=== PATIENT | male | born 1970 | race Caucasian/White ===

== ENCOUNTER → 2018-12-24 | Outpatient (CLI) | payer OTHER ==
--- NOTE | 2018-12-24 21:31 | CONS ---
CONSULTATION DATE OF SERVICE: 12/24/2018 This patient is a 48-year-old gentleman who has been evaluated in the sleep center for possible obstructive sleep apnea-hypopnea syndrome. HISTORY OF PRESENT ILLNESS/SLEEP-WAKE EVALUATION: Patient's usual sleep schedule on working days is from 10 p.m. to 5 a.m. and on weekends from 10 p.m. to 8 or 9 a.m. No problems with falling asleep. No TV in bedroom. He sleeps with his . He sleeps in different positions. He snores and has episodes of stopped breathing during sleep witnessed by his and also himself that he wakes up gasping for air up to 3 times at night. In the morning he wakes up tired. He usually does not take any naps, although [place] Sleepiness Scale is 1. No history of hypnagogic hallucinations, sleep paralysis or cataplexy. PAST MEDICAL HISTORY: Basically negative for any significant medical problems. PAST SURGICAL HISTORY: Vasectomy. SOCIAL HISTORY: Negative for smoking. Alcohol consumption occasional. MEDICATIONS: None. FAMILY HISTORY: Heart problems, sleep apnea, diabetes. REVIEW OF SYSTEMS: Awakenings from sleep, feeling some tiredness after awakenings. PHYSICAL EXAMINATION: GENERAL: A pleasant gentleman without distress. VITAL SIGNS: BP 112/75, HR 70, RR 16. Height 5 feet 8-1/2 inches. Weight 203, body mass index 30.4. Neck 15 inches in circumference. Temperature 98.3. Oxygen saturation at room air 98%. HEENT: PERRLA, EOMI. Evaluation of oropharynx showed tongue protrudes midline. Extremely low position of soft palate. Mallampati IV. Slight restriction of nasal breathing. Slight asymmetry of the nose. NECK: Supple. No JVD. Thyroid is not palpable. LUNGS: Clear to percussion and to auscultation. Good air exchange. No wheezing or rhonchi. HEART: S1, S2 regular. No murmurs, gallops or rubs. ABDOMEN: Soft and nontender. Bowel sounds are present. No organomegaly. EXTREMITIES: No clubbing or cyanosis. MORNING SHOW [employer]: Awake, alert, and oriented X3. Cranial nerves 2 to 7 intact. There is no fasciculation or atrophy. noted. No focal deficits observed. IMPRESSION: 1. Snoring, witnessed episodes of stopped breathing during sleep, awakenings from sleep with gasping for air, low position of soft palate, Mallampati IV, wide neck; obstructive sleep apnea-hypopnea syndrome. 2. Mild increasing of body mass index into the range of obesity with body mass index of 30.4. 3. Status post vasectomy. PLAN: 1. Polysomnography for evaluation of patient's breathing during sleep. 2. CPAP/BiPAP titration if sleep study confirms obstructive sleep apnea-hypopnea syndrome. 3. Preferable position during sleep on the side. 4. No driving if patient feels any sleepiness. 5. I will see patient for follow up visit to explain results of testing and following plan. Thank you for referring this patient for consultation. Sincerely, Edmond Birmingham MD, PhD, FAASM Diplomat of [place] [employer] [employer] Polygraph Examiner of [facility] [place] MMODL / RAFAELN: [id number] /
== END | disposition home or self-care (01) ==
LOC: SLEEP 14:05
PROVIDERS: ATTEND Internal Medicine
DX: G47.33 Obstructive sleep apnea (adult) (pediatric) (principal); E66.9 Obesity, unspecified; Z98.52 Vasectomy status
CPT/HCPCS: 99211

== ENCOUNTER 2019-01-06 08:04 | Observation (INO) | payer OTHER ==
[2019-01-06] MEDS ORDERED: SODIUM CHLORIDE 0.9% 500 ML 500 ML IV STA (08:48)
[2019-01-06] MEDS ORDERED: SODIUM CHLORIDE 0.9% 1,000 ML IV STA (08:48)
[2019-01-06] MEDS ORDERED: MORPHINE SULFATE 4 MG/ML SYRINGE IVP STA (08:55)
[2019-01-06] MEDS ORDERED: FAMOTIDINE 20 MG/2 ML VIAL IV STA (09:17)
--- NOTE | 2019-01-06 09:19 | ED ---
Abdominal Pain HPI - General Chief Complaint: Abdominal Pain Stated Complaint: abd pain Time Seen by Provider: 01/06/19 08:07 Source: patient Mode of arrival: ambulatory Limitations: no limitations - History of Present Illness Initial Comments: 48yo male with history of GERD and no other significant past medical history presenting to the emergency department for chief complaint of 10 hours of sharp epigastric pain with no radiation. Patient states that he has had sharp epigastric pain for the past 10 hours he states he has had 2 episodes of emesis. Patient denies hematemesis. Denies melena hematochezia or history of known peptic ulcer. Patient denies history of finger tenderness or alcohol abuse denies NSAID abuse. Patient states he has had normal bowel movements no changes. Patient denies cough or upper respiratory symptoms. Denies fevers admits to chills. No abdominal surgical history. Patient states when symptoms persisted into this evening he presented to the ER for evaluation. Upon arrival patient appears well there is no signs of acute distress. - Related Data Home Medications Medication Instructions Recorded Confirmed Bismuth Subsalicylate 524 mg PO DAILY PRN 01/06/19 01/06/19 [Pepto-Bismol] Calcium Carbonate [Tums] 500 mg PO TID PRN 01/06/19 01/06/19 Omeprazole [PriLOSEC] 10 mg PO DAILY PRN 01/06/19 01/06/19 Allergies Allergy/AdvReac Type Severity Reaction Status Date / Time No Known Allergies Allergy Verified 01/06/19 08:18 Review of Systems ROS Statement: Those systems with pertinent positive or pertinent negative responses have been documented in the HPI. ROS Other: All systems not noted in ROS Statement are negative. Past Medical History Past Medical History: No Reported History History of Any Multi-Drug Resistant Organisms: None Reported Additional Past Surgical History / Comment(s): vasectomy Past Psychological History: No Psychological Hx Reported Smoking Status: Never smoker Past Alcohol Use History: Occasional Past Drug Use History: None Reported General Exam - General Exam Comments Initial Comments: General: The patient is awake and alert, appears uncomfortable but no distress,nontoxic in appearance Eye: +3 mm pupils are equal, round and reactive to light, extra-ocular movements are intact. No nystagmus. There is normal conjunctiva bilaterally. No signs of icterus. Ears, nose, mouth and throat: There are moist mucous membranes and no oral lesions. Cardiovascular: There is a regular rate and rhythm. No murmur, rub or gallop is appreciated. Respiratory: Lungs are clear to auscultation, respirations are non-labored, breath sounds are equal. No wheezes, stridor, rales, or rhonchi. Gastrointestinal: Soft, non-distended, it is tender to palpation epigastric and right upper quadrant with positive Rose sign. The remainder of the abdomen is is without tenderness masses or organomegaly noted. There is no rebound or guarding present. Musculoskeletal: Normal ROM, no tenderness. Strength 5/5. Sensation intact. P ulses equal bilaterally 2+. Neurological: A&O x 3. CN II-XII intact grossly, There are no obvious motor or sensory deficits. Coordination appears grossly intact. Speech is normal. Skin: Skin is warm and dry and no rashes or lesions are noted. Psychiatric: Cooperative, appropriate mood & affect, normal judgment. Limitations: no limitations Course Vital Signs 01/06/19 01/06/19 08:06 10:31 Temperature 98.3 F Pulse Rate 76 81 Respiratory 18 18 Rate Blood Pressure 130/84 134/84 O2 Sat by Pulse 100 99 Oximetry Medical Decision Making - Medical Decision Making Very pleasant 48-year-old male presenting for evaluation of right upper quadrant epigastric pain. Transaminases and alkaline phosphatase within normal limits. Patient does have white blood cell count of 14. Positive Orse sign. Sonographic Rose sign with gallstones mildly dilated, bile duct. No other secondary signs of acute cholecystitis however differential diagnosis includes developing acute cholecystitis. Patient was given morphine however remains uncomfortable. No acute distress. Surgery was consult and after discussing the case with attending provider Dr. Bejarano with recommendation of admission with IV antibiotics. Patient agreeable transferred to floor in stable condition. Ventricular rate 75 bpm, MA interval 150 ms, QRS duration 82 ms, QT/QTC 378/422 ms. This is a normal sinus rhythm with a sinus arrhythmia. There is no ST elevation or depression and normal R-wave progression. - Lab Data Result diagrams: 01/06/19 09:05 01/06/19 09:05 Lab Results 01/06/19 01/06/19 01/06/19 Range/Units 09:05 09:05 09:05 WBC 14.4 H (3.8-10.6) k/uL RBC 4.99 (4.30-5.90) m/uL Hgb 16.2 (13.0-17.5) gm/dL Hct 47.0 (39.0-53.0) % MCV 94.0 (80.0-100.0) fL MCH 32.5 (25.0-35.0) pg MCHC 34.6 (31.0-37.0) g/dL RDW 12.3 (11.5-15.5) % Plt Count 250 (150-450) k/uL Neutrophils % 86 % Lymphocytes % 9 % Monocytes % 4 % Eosinophils % 0 % Basophils % 0 % Neutrophils # 12.4 H (1.3-7.7) k/uL Lymphocytes # 1.3 (1.0-4.8) k/uL Monocytes # 0.6 (0-1.0) k/uL Eosinophils # 0.0 (0-0.7) k/uL Basophils # 0.0 (0-0.2) k/uL Sodium 137 (137-145) mmol/L Potassium 4.1 (3.5-5.1) mmol/L Chloride 100 (98-107) mmol/L Carbon Dioxide 26 (22-30) mmol/L Anion Gap 11 mmol/L BUN 15 (9-20) mg/dL Creatinine 1.01 (0.66-1.25) mg/dL Est GFR (CKD-EPI)AfAm >90 (>60 ml/min/1.73 sqM) Est GFR (CKD-EPI)NonAf 89 (>60 ml/min/1.73 sqM) Glucose 119 H (74-99) mg/dL Calcium 10.1 (8.4-10.2) mg/dL Total Bilirubin 0.8 (0.2-1.3) mg/dL AST 25 (17-59) U/L ALT 42 (21-72) U/L Alkaline Phosphatase 68 (38-126) U/L Troponin I <0.012 (0.000-0.034) ng/mL Total Protein 8.1 (6.3-8.2) g/dL Albumin 4.8 (3.5-5.0) g/dL Amylase 76 (30-110) U/L Lipase 136 (23-300) U/L Urine Color Urine Appearance (Clear) Urine pH (5.0-8.0) Ur Specific [place] (1.001-1.035) Urine Protein (Negative) Urine Glucose (UA) (Negative) Urine Ketones (Negative) Urine Blood (Negative) Urine Nitrite (Negative) Urine Bilirubin (Negative) Urine Urobilinogen (<2.0) mg/dL Ur Leukocyte Esterase (Negative) 01/06/19 Range/Units 09:24 WBC (3.8-10.6) k/uL RBC (4.30-5.90) m/uL Hgb (13.0-17.5) gm/dL Hct (39.0-53.0) % MCV (80.0-100.0) fL MCH (25.0-35.0) pg MCHC (31.0-37.0) g/dL RDW (11.5-15.5) % Plt Count (150-450) k/uL Neutrophils % % Lymphocytes % % Monocytes % % Eosinophils % % Basophils % % Neutrophils # (1.3-7.7) k/uL Lymphocytes # (1.0-4.8) k/uL Monocytes # (0-1.0) k/uL Eosinophils # (0-0.7) k/uL Basophils # (0-0.2) k/uL Sodium (137-145) mmol/L Potassium (3.5-5.1) mmol/L Chloride (98-107) mmol/L Carbon Dioxide (22-30) mmol/L Anion Gap mmol/L BUN (9-20) mg/dL Creatinine (0.66-1.25) mg/dL Est GFR (CKD-EPI)AfAm (>60 ml/min/1.73 sqM) Est GFR (CKD-EPI)NonAf (>60 ml/min/1.73 sqM) Glucose (74-99) mg/dL Calcium (8.4-10.2) mg/dL Total Bilirubin (0.2-1.3) mg/dL AST (17-59) U/L ALT (21-72) U/L Alkaline Phosphatase (38-126) U/L Troponin I (0.000-0.034) ng/mL Total Protein (6.3-8.2) g/dL Albumin (3.5-5.0) g/dL Amylase (30-110) U/L Lipase (23-300) U/L Urine Color Yellow Urine Appearance Clear (Clear) Urine pH 7.5 (5.0-8.0) Ur Specific [place] 1.026 (1.001-1.035) Urine Protein Trace H (Negative) Urine Glucose (UA) Negative (Negative) Urine Ketones 2+ H (Negative) Urine Blood Negative (Negative) Urine Nitrite Negative (Negative) Urine Bilirubin Negative (Negative) Urine Urobilinogen <2.0 (<2.0) mg/dL Ur Leukocyte Esterase Negative (Negative) Disposition Clinical Impression: Acute cholecystitis Disposition: ADMITTED IP TO THIS [facility] Condition: Stable Is patient prescribed a controlled substance at d/c from ED?: No Referrals: Tejinder Quintana MD [Primary Care Provider] - 1-2 days Time of Disposition: 10:44 Decision to Admit Reason: Admit from EC Decision Date: 01/06/19 Decision Time: 10:44
[2019-01-06 09:34] LABS: Basophils % (A) 0 %; Eosinophils % (A) 0 %; HGB 16.2 gm/dL (13.0-17.5); Lymphocytes # (A) 1.3 k/uL (1.0-4.8); Lymphocytes % (A) 9 %; MCH 32.5 pg (25.0-35.0); MCHC 34.6 g/dL (31.0-37.0); Mean Platelet Volume 5.9; Monocytes # (A) 0.6 k/uL (0-1.0); Monocytes % (A) 4 %; Neutrophils # (A) 12.4 k/uL (1.3-7.7); Neutrophils % (A) 86 %; Platelet Count 250 k/uL (150-450); RBC 4.99 m/uL (4.30-5.90); RDW 12.3 % (11.5-15.5); WBC 14.4 k/uL (3.8-10.6)
[2019-01-06 09:37] LABS: ALT 42 U/L (21-72); AST 25 U/L (17-59); African American GFR (CKD) >90 (>60 ml/min/1.73 sqM); Albumin 4.8 g/dL (3.5-5.0); Alkaline Phosphatase 68 U/L (38-126); Amylase 76 U/L (30-110); Anion Gap 11 mmol/L; Blood Urea Nitrogen 15 mg/dL (9-20); Calcium 10.1 mg/dL (8.4-10.2); Carbon Dioxide 26 mmol/L (22-30); Chloride 100 mmol/L (98-107); Glucose 119 mg/dL (74-99); Potassium 4.1 mmol/L (3.5-5.1); Sodium 137 mmol/L (137-145); Total Bilirubin 0.8 mg/dL (0.2-1.3); Total Protein 8.1 g/dL (6.3-8.2)
[2019-01-06 09:40] LABS: Appearance,Urine Clear (Clear); Bilirubin,Urine Negative (Negative); Blood,Urine Negative (Negative); Color,Urine Yellow; Glucose,Urine (UA) Negative (Negative); Ketones,Urine 2+ (Negative); Leukocyte Esterase,Urine Negative (Negative); Nitrite,Urine Negative (Negative); PH, Urine 7.5 (5.0-8.0); Protein,Urine Trace (Negative); Specific Gravity,Urine 1.026 (1.001-1.035); Urobilinogen,Urine <2.0 mg/dL (<2.0)
--- NOTE | 2019-01-06 09:59 | XR ---
EXAMINATION TYPE: XR chest 2V DATE OF EXAM: 01/06/2019 COMPARISON: NONE TECHNIQUE: PA and lateral views submitted. HISTORY: Pain FINDINGS: The lungs are clear and there is no pneumothorax, pleural effusion, or focal pneumonia. No overt fa ilure. IMPRESSION: 1. No acute process.
--- NOTE | 2019-01-06 10:01 | US ---
EXAMINATION TYPE: US abdomen limited DATE OF EXAM: 01/06/2019 COMPARISON: NONE CLINICAL HISTORY: epigastric pain. epigastric pain with N/V EXAM MEASUREMENTS: Liver Length: 16.5 cm Gallbladder Wall: 0.2 cm CBD: 0.7 cm Right Kidney: 9.4 x 5.4 x 5.5 cm Pancreas: wnl Liver: There is increased echogenicity of the hepatic parenchyma with diminished visualization of th e portal triads most commonly relating to hepatic steatosis and limiting evaluation for underlying he patic masses. Probable focal fatty sparing near the gallbladder fossa. Gallbladder: multiple fundal stones seen with no wall thickening, focal fatty sparing seen adjacent to GB Evidence for sonographic Rose's sign: YES CBD: wnl Right Kidney: wnl IMPRESSION: 1. Cholelithiasis and mildly dilated common bile duct as well as positive sonographic Rose sign con cerning for early developing acute cholecystitis. Correlate with physical exam and serum laboratory v alues as there is no gallbladder wall thickening nor pericholecystic fluid at this time. Biliary slud ge is also seen. 2. Sonographic findings most commonly related to hepatic steatosis appearing mild in with probable fo florencia fatty sparing near the gallbladder fossa.
[2019-01-06] MEDS ORDERED: PIPERACILLIN-TAZOBACTAM 3.375 GM in SODIUM CHLORIDE 0.9% 100 ML IVPB STA (10:41)
[2019-01-06] MEDS ORDERED: NALOXONE 0.4 MG/ML 1 ML VIAL IV PRN (10:43)
--- NOTE | 2019-01-06 13:30 | P.CRDCN ---
History of Present Illness History of present illness: This is a pleasant 8-year-old male with no significant past medical history. He denies prior history of coronary artery disease, hypertension, dyslipidemia or diabetes mellitus. He presented to the hospital with symptoms of abdominal pain, nausea and vomiting after eating a breakfast casserole. He has been diagnosed with acute cholecystitis and is scheduled to undergo laparoscopic cholecystectomy with Dr. Angel tomorrow. We have been asked to see him in consultation for pre-op evaluation. He has not been seen by the surgeon as of yet. He is seen and examined sitting up in bed with his at the bedside. He continues to feel mild discomfort in the abdomen worse on the right. He has been receiving pain medication that is keeping him comfortable. He denies chest pain, shortness of breath, dizziness or palpitations. He has never had a stress test. He is in the and has regular health screenings and is quite physically fit and active. He denies exertional chest discomfort in the past. EKG reveals sinus mechanism with no acute ST or T wave abnormalities noted. Chest x-ray is negative for an acute cardiopulmonary process. Ultrasound of the abdomen shows cholelithiasis with multiple fundal stones. Laboratory data reviewed, to be VC 14.4, hemoglobin 16.2, potassium 4.1, sodium 137, creatinine 1.0, troponin negative 1. He takes no daily cardiac medications. At the time of my exam: CONSTITUTIONAL: Denies fever. Denies chills. EYES: Denies blurred vision. Denies vision changes. Denies eye pain. EARS, NOSE, MOUTH & THROAT: Denies headache. Denies sore throat. Denies ear pain. CARDIOVASCULAR: Denies chest pain. Denies shortness of breath. Denies orthopnea. Denies PND. Denies palpitations. RESPIRATORY: Denies cough. GASTROINTESTINAL: Denies abdominal pain. Denies diarrhea. Denies constipation. Denies nausea. Denies vomiting. MUSCULOSKELETAL: Denies myalgias. INTEGUMENTARY: Denies pruitis. Denies rash. NEUROLOGIC: Denies numbness. Denies tingling. Denies weakness. PSYCHIATRIC: Denies anxiety. Denies depression. ENDOCRINE: Denies fatigue. Denies weight change. Denies polydipsia. Denies polyurina. GENITOURINARY: Denies burning, hematuria or urgency with micturation. HEMATOLOGIC: Denies history of anemia. Denies bleeding. Blood pressure 130/75 heart rate 61 afebrile maintaining oxygen saturation on room air GENERAL: This is a 48-year-old male in no apparent distress at the time of my examination. HEENT: Head is atraumatic, normocephalic. Pupils are equal, round. Sclerae anicteric. Conjunctivae are clear. Mucous membranes of the mouth are moist. Neck is supple. There is no jugular venous distention. No carotid bruit is heard. LUNGS: Clear to auscultation no wheezes, rales or rhonchi. No chest wall tenderness is noted on palpation or with deep breathing. HEART: Regular rate and rhythm without murmurs, rubs or gallops. S1 and S2 heard. ABDOMEN: Soft, nontender. Bowel sounds are heard. No organomegaly noted. EXTREMITIES: No evidence of peripheral edema and no calf tenderness noted. VASCULAR: Radial and dorsalis pedis pulses palpated, no evidence of clubbing. NEUROLOGIC: Patient is awake, alert and oriented x3. ASSESSMENT Acute cholecystitis with multiple fundal stones PLAN Stable from a cardiac perspective for surgical intervention. He has no symptoms of angina or evidence of fluid overload. He has no risk factors for underlying heart disease and is quite active physically. There are no absolute contraind ications to undergo surgical intervention. Thank you kindly for this consultation. Nurse Practitioner note has been reviewed, I agree with a documented findings and plan of care. Patient was seen and examined. Past Medical History Past Medical History: GERD/Reflux History of Any Multi-Drug Resistant Organisms: None Reported Additional Past Surgical History / Comment(s): vasectomy Past Anesthesia/Blood Transfusion Reactions: No Reported Reaction Additional Past Anesthesia/Blood Transfusion Reaction / Comment(s): Pt has never had general anesthesia. Past Psychological History: No Psychological Hx Reported Smoking Status: Never smoker Past Alcohol Use History: Occasional Past Drug Use History: None Reported - Past Family History Mother Additional Family Medical History / Comment(s): Mother had a cholecystectomy. Father Family Medical History: Diabetes Mellitus Medications and Allergies Home Medications Medication Instructions Recorded Confirmed Type Bismuth Subsalicylate 524 mg PO DAILY PRN 01/06/19 01/06/19 History [Pepto-Bismol] Calcium Carbonate [Tums] 500 mg PO TID PRN 01/06/19 01/06/19 History Omeprazole [PriLOSEC] 10 mg PO DAILY PRN 01/06/19 01/06/19 History Allergies Allergy/AdvReac Type Severity Reaction Status Date / Time No Known Allergies Allergy Verified 01/06/19 08:18 Physical Exam Vitals: Vital Signs Temp Pulse Pulse Resp BP BP Pulse Ox 01/06/19 11:33 98.1 F 61 18 130/75 98 01/06/19 11:25 98.9 F 01/06/19 10:31 81 18 134/84 99 01/06/19 08:06 98.3 F 76 18 130/84 100 Intake and Output 01/05/19 01/06/19 01/06/19 22:59 06:59 14:59 Other: Voiding Method Toilet Weight 90.718 kg Results 01/06/19 09:05 01/06/19 09:05 Cardiac Enzymes 01/06/19 01/06/19 Range/Units 09:05 09:05 AST 25 (17-59) U/L Troponin I <0.012 (0.000-0.034) ng/mL CBC 01/06/19 Range/Units 09:05 WBC 14.4 H (3.8-10.6) k/uL RBC 4.99 (4.30-5.90) m/uL Hgb 16.2 (13.0-17.5) gm/dL Hct 47.0 (39.0-53.0) % Plt Count 250 (150-450) k/uL Comprehensive Metabolic Panel 01/06/19 Range/Units 09:05 Sodium 137 (137-145) mmol/L Potassium 4.1 (3.5-5.1) mmol/L Chloride 100 (98-107) mmol/L Carbon Dioxide 26 (22-30) mmol/L BUN 15 (9-20) mg/dL Creatinine 1.01 (0.66-1.25) mg/dL Glucose 119 H (74-99) mg/dL Calcium 10.1 (8.4-10.2) mg/dL AST 25 (17-59) U/L ALT 42 (21-72) U/L Alkaline Phosphatase 68 (38-126) U/L Total Protein 8.1 (6.3-8.2) g/dL Albumin 4.8 (3.5-5.0) g/dL Current Medications Generic Name Dose Route Start Last Admin Trade Name Freq PRN Reason Stop Dose Admin Sodium Chloride 1,000 mls @ 75 mls/hr 01/06/19 08:48 01/06/19 09:37 Saline 0.9% IV 01/06/19 22:07 75 mls/hr .[id number] STA Administration Morphine Sulfate 4 mg 01/06/19 10:43 Morphine Sulfate (Inj) IV Q4HR PRN Severe Pain Naloxone HCl 0.2 mg 01/06/19 10:43 Narcan IV Q2M PRN Opioid Reversal Ondansetron HCl 4 mg 01/06/19 10:43 Zofran IVP Q8HR PRN Nausea And Vomiting Intake and Output 01/05/19 01/06/19 01/06/19 22:59 06:59 14:59 Other: Voiding Method Toilet Weight 90.718 kg Patient Weight 01/07/19 06:59 Weight 90.718 kg 01/06/19 09:05 01/06/19 09:05
--- NOTE | 2019-01-06 13:42 | P.GSHP ---
<Consuelo Loyd A - Last Filed: 01/06/19 13:35> History of Present Illness H&P Date: 01/06/19 Chief Complaint: abdominal pain CHIEF COMPLAINT: Abdominal pain HISTORY OF PRESENT ILLNESS: 48-year-old male who presents to emergency room with chief complaint of abdominal pain. Patient reports he began having right upper quadrant pain that radiated across his abdomen yesterday after eating breakfast that included sausage, eggs, and cheese. He states his pain is currently tolerable. Denies fever or chills. PAST MEDICAL HISTORY: See list. PAST SURGICAL HISTORY: See list. MEDICATIONS: See list. ALLERGIES: See list. SOCIAL HISTORY: No illicit drug use. REVIEW OF SYSTEMS: CONSTITUTIONAL: Denies fever or chills. HEENT: Denies blurred vision, vision changes, or eye pain. Denies hemoptysis ENDOCRINE: Denies heat or cold intolerance. CARDIOVASCULAR: Denies chest pain or pressure. RESPIRATORY: No shortness of breath. GASTROINTESTINAL: See HPI for pertinent findings. NEURO: Denies history of seizures. PSYCH: No depression or suicidal ideation HEMATOLOGIC: Denies bleeding disorders. LYMPHATIC: The patient denies any lumps and bumps around the neck. GENITOURINARY: Denies any blood in urine or increased urinary frequency. MUSCULOSKELETAL: Denies myalgias. Denies joint swelling. Denies decreased range of motion beyond patients baseline. SKIN: Denies pruitis. Denies rash. PHYSICAL EXAM: VITAL SIGNS: Reviewed GENERAL: Well-developed in no acute distress. HEENT: No sclera icterus. Extraocular movements grossly intact. Moist buccal mucosa. Head is atraumatic, normocephalic. Hears conversational speech. No nasal drainage. NECK: Supple without lymphadenopathy. CHEST: Non-labored respirations and equal bilateral excursions. CARDIOVASCULAR: Regular rate with regular rhythm. Palpable 2+ radial pulses. ABDOMEN: Soft. Nondistended. Tenderness upon palpation of right upper quadrant MUSCULOSKELETAL: No clubbing, cyanosis or edema. NEUROLOGIC: No focal or lateralizing signs. Cranial nerves II through XII grossly intact. PSYCH: Appropriate affect. Alert and oriented to person, place and time. SKIN: Well perfused. Good skin turgor. LABORATORY DATA: WBC 14.4. Hemoglobin 16.2. Platelet count 250. IMAGING: Abdominal ultrasound: Cholelithiasis and mildly dilated common bile duct. Positive sonographic Rose sign. Biliary sludge. ASSESSMENT: 1. Abdominal pain 2. Acute cholecystitis 3. Cholelithiasis 4. Leukocytosis PLAN: 1. Clear liquid diet. Nothing by mouth at midnight 2. Cardiology consulted for surgical clearance 3. Continue antibiotics. Monitor WBC 4. Patient to undergo robotic cholecystectomy tomorrow with Dr. Angel Nurse practitioner note has been reviewed by physician. Signing provider agrees with the documented findings, assessment, and plan of care. Past Medical History Past Medical History: GERD/Reflux History of Any Multi-Drug Resistant Organisms: None Reported Additional Past Surgical History / Comment(s): vasectomy Past Anesthesia/Blood Transfusion Reactions: No Reported Reaction Additional Past Anesthesia/Blood Transfusion Reaction / Comment(s): Pt has never had general anesthesia. Past Psychological History: No Psychological Hx Reported Smoking Status: Never smoker Past Alcohol Use History: Occasional Past Drug Use History: None Reported - Past Family History Mother Additional Family Medical History / Comment(s): Mother had a cholecystectomy. Father Family Medical History: Diabetes Mellitus Medications and Allergies Home Medications Medication Instructions Recorded Confirmed Type Bismuth Subsalicylate 524 mg PO DAILY PRN 01/06/19 01/06/19 History [Pepto-Bismol] Calcium Carbonate [Tums] 500 mg PO TID PRN 01/06/19 01/06/19 History Omeprazole [PriLOSEC] 10 mg PO DAILY PRN 01/06/19 01/06/19 History Allergies Allergy/AdvReac Type Severity Reaction Status Date / Time No Known Allergies Allergy Verified 01/06/19 08:18 Surgical - Exam Vital Signs Temp Pulse Resp BP Pulse Ox 98.3 F 76 18 130/84 100 01/06/19 08:06 01/06/19 08:06 01/06/19 08:06 01/06/19 08:06 01/06/19 08:06 Results - Labs 01/06/19 09:05 01/06/19 09:05 Abnormal Lab Results - Last 24 Hours (Table) 01/06/19 01/06/19 01/06/19 Range/Units 09:05 09:05 09:24 WBC 14.4 H (3.8-10.6) k/uL Neutrophils # 12.4 H (1.3-7.7) k/uL Glucose 119 H (74-99) mg/dL Urine Protein Trace H (Negative) Urine Ketones 2+ H (Negative) Diabetes panel 01/06/19 Range/Units 09:05 Sodium 137 (137-145) mmol/L Potassium 4.1 (3.5-5.1) mmol/L Chloride 100 (98-107) mmol/L Carbon Dioxide 26 (22-30) mmol/L BUN 15 (9-20) mg/dL Creatinine 1.01 (0.66-1.25) mg/dL Glucose 119 H (74-99) mg/dL Calcium 10.1 (8.4-10.2) mg/dL AST 25 (17-59) U/L ALT 42 (21-72) U/L Alkaline Phosphatase 68 (38-126) U/L Total Protein 8.1 (6.3-8.2) g/dL Albumin 4.8 (3.5-5.0) g/dL Calcium panel 01/06/19 Range/Units 09:05 Calcium 10.1 (8.4-10.2) mg/dL Albumin 4.8 (3.5-5.0) g/dL Pituitary panel 01/06/19 Range/Units 09:05 Sodium 137 (137-145) mmol/L Potassium 4.1 (3.5-5.1) mmol/L Chloride 100 (98-107) mmol/L Carbon Dioxide 26 (22-30) mmol/L BUN 15 (9-20) mg/dL Creatinine 1.01 (0.66-1.25) mg/dL Glucose 119 H (74-99) mg/dL Calcium 10.1 (8.4-10.2) mg/dL Adrenal panel 01/06/19 Range/Units 09:05 Sodium 137 (137-145) mmol/L Potassium 4.1 (3.5-5.1) mmol/L Chloride 100 (98-107) mmol/L Carbon Dioxide 26 (22-30) mmol/L BUN 15 (9-20) mg/dL Creatinine 1.01 (0.66-1.25) mg/dL Glucose 119 H (74-99) mg/dL Calcium 10.1 (8.4-10.2) mg/dL Total Bilirubin 0.8 (0.2-1.3) mg/dL AST 25 (17-59) U/L ALT 42 (21-72) U/L Alkaline Phosphatase 68 (38-126) U/L Total Protein 8.1 (6.3-8.2) g/dL Albumin 4.8 (3.5-5.0) g/dL Assessment and Plan (1) Acute cholecystitis Current Visit: Yes Status: Acute Code(s): K81.0 - ACUTE CHOLECYSTITIS SNOMED Code(s): 79306273 <Emi Angel N - Last Filed: 01/06/19 18:56> History of Present Illness Patient reports right upper quadrant abdominal pain with findings consistent with multiple gallstones as seen personally on ultrasound. EKG obtained with EKG changes as personally reviewed. Cardiology consultation appreciated. Robotic cholecystectomy described. Surgical - Exam Vital Signs Temp Pulse Resp BP Pulse Ox 98.3 F 76 18 130/84 100 01/06/19 08:06 01/06/19 08:06 01/06/19 08:06 01/06/19 08:06 01/06/19 08:06 Results - Labs 01/06/19 09:05 01/06/19 09:05 Abnormal Lab Results - Last 24 Hours (Table) 01/06/19 01/06/19 01/06/19 Range/Units 09:05 09:05 09:24 WBC 14.4 H (3.8-10.6) k/uL Neutrophils # 12.4 H (1.3-7.7) k/uL Glucose 119 H (74-99) mg/dL Urine Protein Trace H (Negative) Urine Ketones 2+ H (Negative) Diabetes panel 01/06/19 Range/Units 09:05 Sodium 137 (137-145) mmol/L Potassium 4.1 (3.5-5.1) mmol/L Chloride 100 (98-107) mmol/L Carbon Dioxide 26 (22-30) mmol/L BUN 15 (9-20) mg/dL Creatinine 1.01 (0.66-1.25) mg/dL Glucose 119 H (74-99) mg/dL Calcium 10.1 (8.4-10.2) mg/dL AST 25 (17-59) U/L ALT 42 (21-72) U/L Alkaline Phosphatase 68 (38-126) U/L Total Protein 8.1 (6.3-8.2) g/dL Albumin 4.8 (3.5-5.0) g/dL Calcium panel 01/06/19 Range/Units 09:05 Calcium 10.1 (8.4-10.2) mg/dL Albumin 4.8 (3.5-5.0) g/dL Pituitary panel 01/06/19 Range/Units 09:05 Sodium 137 (137-145) mmol/L Potassium 4.1 (3.5-5.1) mmol/L Chloride 100 (98-107) mmol/L Carbon Dioxide 26 (22-30) mmol/L BUN 15 (9-20) mg/dL Creatinine 1.01 (0.66-1.25) mg/dL Glucose 119 H (74-99) mg/dL Calcium 10.1 (8.4-10.2) mg/dL Adrenal panel 01/06/19 Range/Units 09:05 Sodium 137 (137-145) mmol/L Potassium 4.1 (3.5-5.1) mmol/L Chloride 100 (98-107) mmol/L Carbon Dioxide 26 (22-30) mmol/L BUN 15 (9-20) mg/dL Creatinine 1.01 (0.66-1.25) mg/dL Glucose 119 H (74-99) mg/dL Calcium 10.1 (8.4-10.2) mg/dL Total Bilirubin 0.8 (0.2-1.3) mg/dL AST 25 (17-59) U/L ALT 42 (21-72) U/L Alkaline Phosphatase 68 (38-126) U/L Total Protein 8.1 (6.3-8.2) g/dL Albumin 4.8 (3.5-5.0) g/dL
[2019-01-06] MEDS: MORPHINE SULFATE 4 MG/ML SYRINGE IV PRN ×3 (13:56→22:05)
[2019-01-06] MEDS: ONDANSETRON 4 MG/2 ML VIAL IVP PRN ×2 (14:00→22:04)
[2019-01-06] MEDS: HEPARIN SODIUM,PORCINE 5,000 UNIT/ML 1 ML VIAL SQ SCH ×2 (16:56→23:43)
[2019-01-06] MEDS: PIPERACILLIN-TAZOBACTAM 3.375 GM in SODIUM CHLORIDE 0.9% 100 ML IVPB SCH ×2 (16:57→23:43)
[2019-01-07] MEDS: MORPHINE SULFATE 4 MG/ML SYRINGE IV PRN ×3 (01:54→10:28)
[2019-01-07] MEDS: ONDANSETRON 4 MG/2 ML VIAL IVP PRN (06:01)
[2019-01-07] MEDS: HEPARIN SODIUM,PORCINE 5,000 UNIT/ML 1 ML VIAL SQ SCH ×3 (08:49→23:20)
[2019-01-07] MEDS: PIPERACILLIN-TAZOBACTAM 3.375 GM in SODIUM CHLORIDE 0.9% 100 ML IVPB SCH ×3 (08:49→23:20)
[2019-01-07] MEDS: PANTOPRAZOLE 40 MG/10 ML VIAL IVP SCH (09:23)
--- NOTE | 2019-01-07 11:37 | ECHOF ---
Referral Reason:Left atrial enlargement MEASUREMENTS -------- HEIGHT: 175.3 cm WEIGHT: 90.7 kg BP: RVIDd: 2.4 cm (< 3.3) IVSd: 1.2 cm (0.6 - 1.1) LVIDd: 4.3 cm (3.9 - 5.3) LVPWd: 1.0 cm (0.6 - 1.1) IVSs: 1.3 cm LVIDs: 2.8 cm LVPWs: 1.4 cm LA Diam: 2.9 cm (2.7 - 3.8) LAESV Index (A-L): 15.31 ml/m Ao Diam: 2.6 cm (2.0 - 3.7) AV Cusp: 1.8 cm (1.5 - 2.6) LA Diam: 3.3 cm (2.7 - 3.8) MV EXCURSION: 19.436 mm (> 18.000) MV EF SLOPE: 111 mm/s (70 - 150) EPSS: 0.2 cm MV E Rocky: 0.81 m/s MV DecT: 173 ms MV A Rocky: 0.57 m/s MV E/A Ratio: 1.42 RAP: 5.00 mmHg RVSP: 16.84 mmHg FINDINGS -------- Sinus rhythm. This was a technically adequate study. The left ventricular size is normal. There is mild concentric left ventricular hypertrophy. Overa ll left ventricular systolic function is normal with, an EF between 55 - 60 %. The right ventricle is normal in size. The left atrial size is normal. The right atrial size is normal. The aortic valve is trileaflet, and appears structurally normal. No aortic stenosis or regurgitation. Mild mitral regurgitation is present. Mild tricuspid regurgitation present. Right ventricular systolic pressure is normal at < 35 mmHg. There is no evidence of pulmonary hypertension. There is no pulmonic regurgitation present. The aortic root size is normal. There is no pericardial effusion. CONCLUSIONS -------- 1. Sinus rhythm. 2. This was a technically adequate study. 3. The left ventricular size is normal. 4. There is mild concentric left ventricular hypertrophy. 5. Overall left ventricular systolic function is normal with, an EF between 55 - 60 %. 6. The right ventricle is normal in size. 7. The left atrial size is normal. 8. The right atrial size is normal. 9. The aortic valve is trileaflet, and appears structurally normal. No aortic stenosis or regurgitati on. 10. Mild mitral regurgitation is present. 11. Mild tricuspid regurgitation present. 12. Right ventricular systolic pressure is normal at < 35 mmHg. 13. There is no evidence of pulmonary hypertension. 14. There is no pulmonic regurgitation present. 15. The aortic root size is normal. 16. There is no pericardial effusion. CO CHAIRMAN: Meme Corona RDCS
[2019-01-07] MEDS ORDERED: IV FLUID CONTINUATION 175 ML IV ONE (13:01)
[2019-01-07] MEDS ORDERED: HYDROmorphone 0.5 MG/0.5 ML SYRINGE IVP PRN (13:10)
[2019-01-07] MEDS ORDERED: DEXAMETHASONE SOD PHOSPHATE 10 MG/ML 1 ML VIAL IV ONE (13:10)
[2019-01-07] MEDS ORDERED: LACTATED RINGERS 1,000 ML IV SCH (13:10)
[2019-01-07] MEDS ORDERED: MIDAZOLAM 2 MG/2 ML VIAL IV PRN (13:10)
[2019-01-07] MEDS ORDERED: ONDANSETRON 4 MG/2 ML VIAL IVP ONE (13:10)
[2019-01-07] MEDS ORDERED: HYDROmorphone (PF) 1 MG/ML ONE (14:39)
[2019-01-07] MEDS ORDERED: LIDOCAINE 1% INJ 10MG/ML (20 ML MDV) ONE (14:39)
[2019-01-07] MEDS ORDERED: SODIUM CHLORIDE 0.9% (PF) 10 ML VIAL ONE (14:39)
[2019-01-07] MEDS ORDERED: ROCURONIUM BROMIDE 10 MG/ML 10 ML VIAL IV ONE (14:39)
[2019-01-07] MEDS ORDERED: INDOCYANINE GREEN 25 MG VIAL IV ONE (14:39)
[2019-01-07] MEDS ORDERED: GLYCOPYRROLATE 0.2 MG/ML 2 ML VIAL ONE (14:39)
[2019-01-07] MEDS ORDERED: SUCCINYLCHOLINE CHLORIDE 100 MG/5 ML SYR IV ONE (14:39)
[2019-01-07] MEDS ORDERED: MIDAZOLAM 2 MG/2 ML VIAL ONE (14:39)
[2019-01-07] MEDS ORDERED: fentaNYL (PF) 50 MCG/ML 2 ML AMP ONE (14:39)
[2019-01-07] MEDS ORDERED: NEOSTIGMINE 1 MG/ML 10 ML VIAL ONE (14:39)
[2019-01-07] MEDS ORDERED: PROPOFOL 10 MG/ML 20 ML VIAL IV ONE (14:39)
[2019-01-07] MEDS ORDERED: INDOCYANINE GREEN 25 MG VIAL IV STA (15:03)
[2019-01-07] MEDS ORDERED: LACTATED RINGERS 1,000 ML IV ONE ×3 (15:21→18:00)
--- NOTE | 2019-01-07 17:05 | P.OP ---
Date of Procedure: 01/07/19 Description of Procedure: Date of Procedure: 01/07/19 SURGEON: EROS MINAYA MD PREOPERATIVE DIAGNOSES: 1. Right upper quadrant abdominal pain 2. Acute cholecystitis with symptomatic gallstones. 3. Gastroesophageal reflux disease 4. Abnormal EKG with mild left ventricular hypertrophy POSTOPERATIVE DIAGNOSES: 1. Right upper quadrant abdominal pain 2. Acute HYRDOPS cholecystitis with symptomatic gallstones and cystic duct obstruction 3. Gastroesophageal reflux disease 4. Abnormal EKG with mild left ventricular hypertrophy 5. Fatty liver disease with hepatomegaly OPERATION: Robotic-assisted da Alisia Xi laparoscopic cholecystectomy, multiport with F IREFLY Anesthesia: GETA, local ESTIMATED BLOOD LOSS: 10 mL. SPECIMENS REMOVED: Gallbladder. COMPLICATIONS: None Condition: stable Disposition: floor Operative Findings: 1. Hydrops cholecystitis with gallstones and cystic duct obstruction 2. Dilated cystic duct resected using 45 mm white staple load 3. Firefly technology used identified common bile duct which is within normal limits 4. Fatty liver disease with hepatomegaly . INDICATIONS: The patient is a 48-year-old male who presents with history of cholecystitis. Surgical intervention with a laparoscopic cholecystectomy was described at length including injury to the biliary tree, bleeding, infection, need for further surgery. Informed consent was obtained. Robotic assisted laparoscopic approach was described. Benefits and risks of the procedure including but not limited to bleeding, infection, injury to the biliary tree was described. Informed consent was obtained. DESCRIPTION OF PROCEDURE: Patient was brought to the operating room, placed in supine position. After general induction, the abdomen had been prepped and draped in standard sterile fashion. The robotic da Alisia XI system was primed. After a timeout protocol was performed, the patient had been prepped and draped in standard sterile fashion. The patient was injected with indocyanine green. A 5 mm 0 degrees laparoscopic trocar entry was performed along the left upper quadrant. The abdomen insufflated to 15 mmHg pressure which she tolerated well. Diagnostic laparoscopy demonstrated no injury to bowel viscera or mesentery. The liver surface was remarkable for fatty liver disease and hepatomegaly. The gallbladder was hypoplastic in appearance. Next, two 8 mm robotic ports were placed along the right upper abdomen. The camera 8-mm port was maintained along the epigastrium. Another 8 mm port was placed along the left upper abdominal wall after exchanging the 5 mm port. Please note that the ports were placed at least 10 to 15 cm away from the target anatomy of the gallbladder. The robot was docked along the left lateral abdomen. The patient was repositioned in reverse Trendelenburg position. Using a grasper for arm 3, a grasper for arm 4, including hook cautery for arm 1, the robotic system was docked and primed as described. Instruments were interchanged by the occupational therapy assistant including hook cautery, Bovie cautery and clip appliers. I had sat at the console. Adhesions were identified along the infundibulum of the gallbladder and addressed using hook cautery. The gallbladder fundus was retracted over the dome of the liver. Initial attention was brought to the infundibulum which was gently retracted in the inferior lateral approach. Using a grasper, the cystic duct including the cystic artery was carefully skeletonized. A critical view of safety was obtained. The cystic duct was short and dilated. Using firefly, the common bile duct was identified and also similarly dilated. To carefully isolate the cystic structures, a dome down technique of the gallbladder was performed with bleeding identified along the liver bed control using vessel sealer. With the short nature of the cystic duct and to avoid injury to the common bile duct, transection of the infundibulum was proposed using a robotic 45 mm white stapler load. The ports along the left upper quadrant was exchanged for a 12 mm port. Robotic stapler arm was applied. The gallbladder was divided along the infundibulum using a 45 mm white staple load. Staple line was hemostatic. Electro-Bovie cautery was used to remove the gallbladder from the hepatic fossa. Hemostasis was checked and found to be adequate. The robot was undocked. I re-scrubbed into the case. Using a 10 mm Endo Catch bag via the widened left upper quadrant incision, the specimen was removed from the abdominal cavity. All pneumoperitoneum instruments were evacuated from the abdominal cavity. The incisions were reapproximated using 4-0 Monocryl in an interrupted subcuticular fashion. Jayson-Mo and 0 Vicryl were used to close the defect of the left upper quadrant. Please note along the trocar sites, local anesthetic was placed as a field block prior to insertion of all instruments. Liquid glue was applied to the skin. At the end of the procedure needle, sponge, and instrument count had been verified correct by the color technician. The patient was transferred to postanesthesia care unit in stable condition. Intraoperative films were shared with the patient's family.
[2019-01-07] MEDS: KETOROLAC 30 MG/ML 1 ML VIAL IVP SCH ×2 (19:57→23:20)
[2019-01-07] MEDS: HYDROcodone/APAP 5-325MG 1 EACH TAB PO PRN (19:59)
--- NOTE | 2019-01-07 20:59 | P.PN ---
Progress Note - Text Progress Note Date: 01/07/19 Patient reports feeling much better since surgery and cholecystectomy. He is tolerating diet. May be discharged home tomorrow. Restrictions of 4 pounds in 4 weeks also described. Follow up in the office within 5 days.
[2019-01-08] MEDS: KETOROLAC 30 MG/ML 1 ML VIAL IVP SCH (05:45)
[2019-01-08 07:21] VITALS: BP 123/73; PULSE 82; RESP 18; TEMP 98.1
[2019-01-08 07:35] LABS: Basophils # (A) 0.2 k/uL (0-0.2); Basophils % (A) 1 %; Eosinophils # (A) 0.1 k/uL (0-0.7); Eosinophils % (A) 0 %; HCT 45.9 % (39.0-53.0); HGB 15.4 gm/dL (13.0-17.5); Lymphocytes % (A) 7 %; MCH 32.6 pg (25.0-35.0); MCHC 33.6 g/dL (31.0-37.0); MCV 97.2 fL (80.0-100.0); Mean Platelet Volume 6.7; Monocytes # (A) 0.8 k/uL (0-1.0); Monocytes % (A) 6 %; Neutrophils # (A) 12.2 k/uL (1.3-7.7); Neutrophils % (A) 85 %; Platelet Count 213 k/uL (150-450); RBC 4.73 m/uL (4.30-5.90); RDW 12.5 % (11.5-15.5); WBC 14.4 k/uL (3.8-10.6)
[2019-01-08 07:47] LABS: ALT 117 U/L (21-72); AST 73 U/L (17-59); African American GFR (CKD) >90 (>60 ml/min/1.73 sqM); Albumin 3.7 g/dL (3.5-5.0); Alkaline Phosphatase 51 U/L (38-126); Anion Gap 8 mmol/L; Blood Urea Nitrogen 14 mg/dL (9-20); Carbon Dioxide 31 mmol/L (22-30); Chloride 101 mmol/L (98-107); Glucose 105 mg/dL (74-99); Potassium 4.2 mmol/L (3.5-5.1); Sodium 140 mmol/L (137-145); Total Protein 6.8 g/dL (6.3-8.2)
[2019-01-08] MEDS: PIPERACILLIN-TAZOBACTAM 3.375 GM in SODIUM CHLORIDE 0.9% 100 ML IVPB SCH (07:49)
[2019-01-08] MEDS: HEPARIN SODIUM,PORCINE 5,000 UNIT/ML 1 ML VIAL SQ SCH (07:50)
[2019-01-08] MEDS: PANTOPRAZOLE 40 MG/10 ML VIAL IVP SCH (07:50)
--- NOTE | 2019-01-08 10:45 | P.DS ---
<RachConsuelo Edi - Last Filed: 01/08/19 10:43> Providers Expected date of discharge: 01/08/19 - Discharge Diagnosis(es) (1) Acute cholecystitis Status: Acute Hospital Course: 48-year-old male who presents to emergency room with chief complaint of abdominal pain. Workup completed in the emergency room revealed evidence of acute cholecystitis. Patient underwent robotic cholecystectomy with Dr. Angel. Patient is doing well postoperatively with no immediate complications. His pain is controlled on oral medications. Tolerating diet. Vital signs have been stable. He is stable for discharge home today. Please see EMR for further hospital course details. Discharge Diagnosis: 1. Abdominal pain 2. Acute cholecystitis, s/p robotic cholecystectomy revealing hydrops cholecystitis with gallstones and cystic duct obstruction 3. Cholelithiasis 4. Leukocytosis Nurse practitioner note has been reviewed by physician. Signing provider agrees with the documented findings, assessment, and plan of care. Patient Condition at Discharge: Stable Plan - Discharge Summary Discharge Rx Participant: No New Discharge Prescriptions: New Acetaminophen Tab [Tylenol Tab] 650 mg PO Q4H PRN #30 tablet PRN Reason: Pain No Action Omeprazole [PriLOSEC] 10 mg PO DAILY PRN PRN Reason: Heartburn Calcium Carbonate [Tums] 500 mg PO TID PRN PRN Reason: Heartburn Bismuth Subsalicylate [Pepto-Bismol] 524 mg PO DAILY PRN PRN Reason: Heartburn Discharge Medication List Bismuth Subsalicylate [Pepto-Bismol] 524 mg PO DAILY PRN 01/06/19 [History] Calcium Carbonate [Tums] 500 mg PO TID PRN 01/06/19 [History] Omeprazole [PriLOSEC] 10 mg PO DAILY PRN 01/06/19 [History] Acetaminophen Tab [Tylenol Tab] 650 mg PO Q4H PRN #30 tablet 01/08/19 [Rx] Follow up Appointment(s)/Referral(s): Tejinder Quintana MD [Primary Care Provider] - 1-2 days Emi Angel MD [STAFF PHYSICIAN] - 01/12/19 Patient Instructions/Handouts: Laparoscopic Cholecystectomy (DC) Activity/Diet/Wound Care/Special Instructions: Tylenol or Motrin as needed for pain You may shower. No soaking or tub baths Very light activity until you are reevaluated at your follow up appointment with your surgeon No lifting over 4 pounds for 4 weeks Discharge Disposition: HOME SELF-CARE <Emi Angel - Last Filed: 01/08/19 18:29> Providers Date of admission: 01/06/19 10:59 Attending physician: Emi Angel Consults: 01/06/19 10:50 Consult Physician Routine Consulting Provider: Jonathan Woods Consult Reason/Comments: Cardiac clearance Do you want consulting provider notified?: Yes 01/06/19 21:02 Consult Physician Routine Consulting Provider: [facility] Consult Reason/Comments: [facility] Do you want consulting provider notified?: Yes Primary care physician: Elbert Quintana
[2019-01-08] MEDS: HYDROcodone/APAP 5-325MG 1 EACH TAB PO PRN (11:50)
== END 2019-01-08 12:26 | disposition home or self-care (01) ==
LOC: EC 08:04 → 1SOBS 10:59
PROVIDERS: ADMIT Surgery Plastic and Reconstructive Surgery; ATTEND Surgery Plastic and Reconstructive Surgery
DX: K80.01 Calculus of gallbladder with acute cholecystitis with obstruction (principal); K82.1 Hydrops of gallbladder; K83.8 Other specified diseases of biliary tract; K21.9 Gastro-esophageal reflux disease without esophagitis; Z83.3 Family history of diabetes mellitus; Z83.79 Family history of other diseases of the digestive system; Z79.899 Other long term (current) drug therapy; R94.31 Abnormal electrocardiogram [ECG] [EKG]; I51.7 Cardiomegaly; K76.0 Fatty (change of) liver, not elsewhere classified; R16.0 Hepatomegaly, not elsewhere classified
CPT/HCPCS: 47562; S2900; 36415; 71046; 76705; 80053; 81003; 82150; 83690; 84484; 85025; 87040; 88304; 93005; 93306; 96361; 96374; 96375; 99285